=== PATIENT | female | born 1995 | race African-American/Black ===

== ENCOUNTER 2025-04-19 14:38 | Emergency (ER) | payer SELFPAY ==
[2025-04-19] MEDS ORDERED: Albuterol 2.5 MG (3 mL) NEB ONE ×2 (16:02→18:32)
[2025-04-19] MEDS ORDERED: Dexamethasone 10 MG/ML VIAL ONE (16:07)
[2025-04-19] MEDS ORDERED: cefTRIAXone (ROCEPHIN) 1 GM VIAL ONE (16:08)
== END 2025-04-19 19:25 | disposition home or self-care (01) ==
LOC: CSHERS 14:38
DX: J18.9 Pneumonia, unspecified organism (principal); J45.901 Unspecified asthma with (acute) exacerbation; I10 Essential (primary) hypertension
CPT/HCPCS: 94640; 94644; 94760; 96365; J0696; J1100; J7611